=== PATIENT | female | born 1950 | race Caucasian/White ===

== ENCOUNTER 2017-08-16 17:08 | Emergency (ER) | payer MEDICARE, BC ==
[2017-08-16] MEDS ORDERED: Adacel (T-DAP) 0.5 ML VIAL ONE (17:36)
[2017-08-16] MEDS ORDERED: Bacitracin Zinc 1 Packet ONE (17:36)
== END 2017-08-16 18:02 | disposition home or self-care (01) ==
LOC: BURERS 17:08
DX: S51.812A Laceration without foreign body of left forearm, initial encounter (principal); E78.5 Hyperlipidemia, unspecified; F17.210 Nicotine dependence, cigarettes, uncomplicated; I10 Essential (primary) hypertension; Z85.038 Personal history of other malignant neoplasm of large intestine; Z79.82 Long term (current) use of aspirin; Z79.899 Other long term (current) drug therapy; W22.8XXA Striking against or struck by other objects, initial encounter
CPT/HCPCS: 90471; 90715

== ENCOUNTER 2017-08-17 14:29 | Emergency (ER) | payer MEDICARE, BC ==
[~2017-08-17 14:29] MED LIST: Iopamidol 370 76% 100 ML VIAL ONE
[2017-08-17 15:07] LABS: #Basophils 0.1 thou/uL (0.0-0.2); #Monocytes 1.1 thou/uL (0.11-0.59); #Neutrophils 4.8 thou/uL (1.40-6.50); %Basophils 0.6 % (0.0-1.0); %Eosinophils 0.1 % (0.0-10.0); %Lymphocytes 25.5 % (21.0-51.0); %Monocytes 13.3 % (0.0-10.0); %Neutrophils 60.4 % (42.0-75.0); Hemoglobin 11.5 g/dL (12.0-16.0); Mean Corpuscular Hemoglobin 31.5 pg (27.0-31.0); Mean Corpuscular Volume 87.7 fL (78.0-98.0); Mean Platelet Volume 6.3 fL (7.4-10.4); Platelet Count 299 thou/uL (130-400); RBC Distribution Width 14.1 % (11.5-14.5); Red Blood Cell (RBC) Count 3.65 mill/uL (4.20-5.40)
[2017-08-17 15:21] LABS: Clarity Clear (Clear); Glucose, Urine (Dipstick) Negative (Negative); Leukocyte Trace (Negative); Nitrite Negative (Negative); Protein, Urine (Dipstick) 100 mg/dL (Neg-Trace); Specific Gravity, Urine 1.025 (1.005-1.030)
[2017-08-17 15:21] LABS: ALT (SGPT) 7 U/L (8-55); AST (SGOT) 14 U/L (5-34); Albumin 3.9 g/dL (3.4-4.8); Alkaline Phosphatase 100 U/L (40-150); Anion Gap 14 mmol/L (10-20); BUN (Urea Nitrogen) 10 mg/dL (9.8-20.1); Bilirubin, Total 0.5 mg/dL (0.2-1.2); Calc. Creatinine Clearance 0 mL/min (70-130); Calcium 9.3 mg/dL (7.8-10.44); Carbon Dioxide 30 mmol/L (23-31); Chloride 98 mmol/L (98-107); Estimated GFR-MDRD 83; Globulin 3.3 g/dL (2.4-3.5); Glucose 100 mg/dL (80-115); Protein, Total 7.2 g/dL (6.0-8.3); Sodium 139 mmol/L (136-145)
[2017-08-17 15:22] LABS: Bacteria/HPF Rare-Few HPF (None Seen); Bilirubin Moderate (Negative); Blood, Urine Negative (Negative); Other Microscopic Description C&S SET UP; RBC/HPF 0-3 HPF (0-3); Squamous Epithelial 0-3 HPF (0-3)
[2017-08-17] MEDS ORDERED: Acetaminophen 325 MG TAB ONE (15:29)
[2017-08-17] MEDS ORDERED: Piperacillin/Tazobactam 3.375 GM VIAL ONE (15:29)
[2017-08-17] MEDS ORDERED: Sodium Chloride 0.9% 100 ML ONE (15:29)
--- NOTE | 2017-08-17 16:39 | RAD ---
CHEST TWO VIEWS: 08/17/17 No prior chest film was available for comparison, but I did review a report of the PET CT scan done l ast month. That scan showed hypermetabolic activity in the left lower lobe as well as right upper lob e. A 3.9 cm lobulated mass is seen in the superior segment of the left lower lobe. Given the clinical hi story, this is consistent with metastatic disease. While there is a known nodule in the right upper l obe, it is not easily visible on this plain chest radiograph. The lungs are otherwise clear. There ar e no lobar infiltrates or effusions. The heart is normal in size and the trachea is midline. A Medipo rt catheter is in place. IMPRESSION: Large lobulated mass in the superior segment left lower lobe. POS: HOME
--- NOTE | 2017-08-17 16:44 | CT ---
CT OF THE NECK WITH CONTRAST 08/17/[address] of the neck was performed for evaluation of left neck swelling. A review of last months PET CT of the body revealed hypermetabolic adenopathy in the left neck and mediastinum. Today's exam shows multiple solid masses in the left neck, some as large as 3.6 cm in size. These are mostly solid, though a few may have a slightly necrotic center. There were no gross fluid collection s that were thought to be drainable to suggest abscess. These masses do cause some compression of ves sels as they pass by them. A 1 cm nodule is seen in the apex of the right lung posteriorly and a second smaller density is seen superior to this that may or may not be a nodule. Emphysematous changes are apparent throughout the l ungs. Some adenopathy is apparent just superior to the aortic arch between the left subclavian and le ft common carotid arteries. An incidental finding on this study was central canal stenosis of the spine at the C5-C6 level due to osteophytes. The AP diameter is reduced to about 8 mm. IMPRESSION: 1. Multiple palpable neck masses appear to be markedly enlarged nodes. A focal drainable abscess is not seen. 2. 1 cm right upper lobe nodule. 3. Spinal stenosis at C5-C6. POS: HOME
[2017-08-17] MEDS ORDERED: cefTRIAXone\\ROCEPHIN 1 GM VIAL ONE (17:28)
== END 2017-08-17 17:55 | disposition home or self-care (01) ==
LOC: BURERS 14:29
DX: L03.114 Cellulitis of left upper limb (principal); N39.0 Urinary tract infection, site not specified; R59.0 Localized enlarged lymph nodes; E78.5 Hyperlipidemia, unspecified; I10 Essential (primary) hypertension; F17.210 Nicotine dependence, cigarettes, uncomplicated; Z79.899 Other long term (current) drug therapy; Z79.82 Long term (current) use of aspirin; Z85.038 Personal history of other malignant neoplasm of large intestine
CPT/HCPCS: 36415; 70491; 71046; 80053; 81003; 81015; 83605; 85025; 85652; 87040; 87086; 96361; 96365; 96367; 96375; A4216; J0696; J2543; J3370; J7050